=== PATIENT | female | born 1955 | race Caucasian/White ===

== ENCOUNTER → 2016-11-21 | Outpatient (CLI) | payer OTHER ==
[2016-03-13 14:05] VITALS: BP 136/62
[~2016-11-21] MED LIST: ACET325T9 PO; ASPI-482 PO; ATOR10TA60 PO; CLOP75TA57 PO; DIGO125T PO; DILT240C2 PO; DILT30TA26 PO; FLUO20CA16 PO; FURO-69 PO; GLIM1TAB2 PO; GLIP5TAB3 PO; HYDR-971 PO; LOSA25TA4 PO; MAGN400C PO; METF10002 PO; METF500T4 PO; METO200T3 PO; PHEN100T82 PO; PRAV20TA2 PO; RIVA10TA PO; SOTA120T7 PO; SULF1TAB24 PO; WARF-78 PO; WARF1TAB74 PO; WARF2.5T83 PO
[2016-11-21 16:44] LABS: ALBUMIN/GLOBULIN RATIO 0.7 (1.0-1.7); CALCIUM 8.4 mg/dL (8.5-10.1); CREATININE 1.4 mg/dL (0.6-1.0); GFR 38.5; POTASSIUM 4.8 mmol/L (3.5-5.1); TOTAL BILIRUBIN 0.2 mg/dL (0.2-1.0); TOTAL PROTEIN 7.1 g/dL (6.4-8.2)
[2016-11-21 17:04] LABS: BASO % 1 % (0-3); EOS # 0.3 x10^3/uL (0.0-0.7); EOS % 3 % (0-3); HEMATOCRIT 37.4 % (36.0-47.0); HEMOGLOBIN 11.9 g/dL (12.0-15.5); LYMPH % 33 % (24-48); MEAN CORPUSCULAR HEMOGLOBIN 29 pg (25-35); MEAN CORPUSCULAR HGB CONC 32 g/dL (31-37); MEAN CORPUSCULAR VOLUME 90 fL (79-100); MONO % 11 % (0-9); NEUT # 4.6 x10^3uL (1.8-7.7); NEUT % 52 % (31-73); PLATELET COUNT 207 x10^3/uL (140-400); RED BLOOD COUNT 4.17 x10^6/uL (3.50-5.40); RED CELL DISTRIBUTION WIDTH 16.5 % (11.5-14.5); WHITE BLOOD COUNT 8.9 x10^3/uL (4.0-11.0)
== END | disposition home or self-care (01) ==
LOC: LAB 15:46
PROVIDERS: ATTEND Internal Medicine Cardiovascular Disease
DX: I73.9 Peripheral vascular disease, unspecified (principal)
CPT/HCPCS: 36415; 80053; 84550; 85027

== ENCOUNTER → 2016-12-16 | Outpatient (CLI) | payer OTHER ==
[2016-03-13 14:05] VITALS: BP 136/62
[2016-12-16 09:30] LABS: BASO % 1 % (0-3); EOS # 0.3 x10^3/uL (0.0-0.7); EOS % 4 % (0-3); HEMATOCRIT 35.6 % (36.0-47.0); HEMOGLOBIN 11.6 g/dL (12.0-15.5); LYMPH # 3.2 x10^3/uL (1.0-4.8); LYMPH % 40 % (24-48); MEAN CORPUSCULAR HEMOGLOBIN 29 pg (25-35); MEAN CORPUSCULAR HGB CONC 33 g/dL (31-37); MEAN CORPUSCULAR VOLUME 90 fL (79-100); MONO # 0.9 x10^3/uL (0.0-1.1); MONO % 12 % (0-9); NEUT # 3.5 x10^3uL (1.8-7.7); NEUT % 44 % (31-73); PLATELET COUNT 193 x10^3/uL (140-400); RED BLOOD COUNT 3.96 x10^6/uL (3.50-5.40); RED CELL DISTRIBUTION WIDTH 16.3 % (11.5-14.5)
[2016-12-16 09:31] LABS: ALBUMIN 2.8 g/dL (3.4-5.0); CALCIUM 8.5 mg/dL (8.5-10.1); CREATININE 1.4 mg/dL (0.6-1.0); GFR 38.5; MAGNESIUM 1.7 mg/dL (1.8-2.4); PHOSPHORUS 3.4 mg/dL (2.6-4.7); POTASSIUM 4.7 mmol/L (3.5-5.1)
[2016-12-16 18:08] LABS: CALCIUM PTH 8.6 mg/dL (8.7-10.2); CREATININE PTH 1.24 mg/dL (0.57-1.00); PTH INTACT 67 pg/mL (15-65)
== END | disposition home or self-care (01) ==
LOC: LAB 08:03
PROVIDERS: ATTEND Internal Medicine Nephrology
DX: I12.9 Hypertensive chronic kidney disease with stage 1 through stage 4 chronic kidney disease, or unspecified chronic kidney disease (principal); N18.3 Chronic kidney disease, stage 3 (moderate); E11.22 Type 2 diabetes mellitus with diabetic chronic kidney disease; E11.21 Type 2 diabetes mellitus with diabetic nephropathy; N27.0 Small kidney, unilateral; N20.0 Calculus of kidney; Z68.41 Body mass index [BMI] 40.0-44.9, adult
CPT/HCPCS: 36415; 80069; 83735; 83970; 85027

== ENCOUNTER → 2017-01-10 | Outpatient (CLI) | payer OTHER ==
[2016-03-13 14:05] VITALS: BP 136/62
--- NOTE | 2017-01-10 15:46 | RAD ---
Exam performed: Thyroid ultrasound. Indication: Multinodular goiter. Date of Service: 01/10/17. Comparison: 01/07/16. Technique: Real-time grayscale imaging of the thyroid gland is performed and images are obtained. Findings: The thyroid gland is and large and heterogeneous in echotexture. There are multiple bilateral thyroid nodules with very little residual thyroid tissue. The right lobe measures 6.0 x 1.6 x 1.9 cm whereas the left lobe measures 4.9 x 2.8 x 2.6 cm. The thyroid isthmus measures 2.0 mm. Numerous bilateral solid nodules are seen scattered throughout both lobes of the thyroid gland. The largest nodule on the right measures 50.4 x 1.9 x 1.2 cm in the inferior pole and the largest nodule on the left measures 3.2 x 1.9 x 1.3 cm in the superior pole. Impression: 1. Multiple bilateral thyroid nodules appear overall similar.
== END | disposition home or self-care (01) ==
LOC: US 12:22
PROVIDERS: ATTEND Surgery
DX: E04.2 Nontoxic multinodular goiter (principal)
CPT/HCPCS: 76536

== ENCOUNTER → 2017-01-10 | Outpatient (CLI) | payer OTHER ==
[2016-03-13 14:05] VITALS: BP 136/62
[2017-01-10 13:07] LABS: CALCIUM 8.7 mg/dL (8.5-10.1); CREATININE 1.4 mg/dL (0.6-1.0); GFR 38.5; POTASSIUM 4.1 mmol/L (3.5-5.1)
== END | disposition home or self-care (01) ==
LOC: LAB 12:31
PROVIDERS: ATTEND Internal Medicine Nephrology
DX: I13.0 Hypertensive heart and chronic kidney disease with heart failure and stage 1 through stage 4 chronic kidney disease, or unspecified chronic kidney disease (principal); N18.3 Chronic kidney disease, stage 3 (moderate); I50.9 Heart failure, unspecified; E11.21 Type 2 diabetes mellitus with diabetic nephropathy; N20.0 Calculus of kidney; N27.0 Small kidney, unilateral; Z79.4 Long term (current) use of insulin; Z72.0 Tobacco use; Z68.42 Body mass index [BMI] 45.0-49.9, adult
CPT/HCPCS: 36415; 80048

== ENCOUNTER → 2017-03-29 | Outpatient (CLI) | payer OTHER ==
[2016-03-13 14:05] VITALS: BP 136/62
[~2017-03-29] MED LIST changes: -METO200T3 PO; +METO200T5 PO
[2017-03-29 12:07] LABS: HEMATOCRIT 34.6 % (36.0-47.0); HEMOGLOBIN 11.1 g/dL (12.0-15.5)
[2017-03-29 12:14] LABS: ALBUMIN 2.8 g/dL (3.4-5.0); CALCIUM 8.5 mg/dL (8.5-10.1); CREATININE 1.7 mg/dL (0.6-1.0); GFR 30.8; MAGNESIUM 1.7 mg/dL (1.8-2.4); PHOSPHORUS 3.3 mg/dL (2.6-4.7); POTASSIUM 4.6 mmol/L (3.5-5.1)
[2017-03-29 12:24] LABS: BACTERIA,URINE MOD /HPF (0-FEW); BILIRUBIN,URINE NEG (NEG); CLARITY,URINE HAZY; COLOR,URINE YELLOW; GLUCOSE,URINE NEG (NEG); NITRITE,URINE NEG (NEG); RBC,URINE RARE /HPF (0-2); SQUAMOUS EPITHELIAL CELL,UR MOD /LPF; UROBILINOGEN,URINE 0.2 mg/dL (0.2 mg/dL)
[2017-03-30 06:12] LABS: MICRO CREAT RATIO <49.2 mg/g creat (0.0-30.0); MICROALB RD UR <12.0 ug/mL (Not Estab.); UR PROTEIN RD 6.1 mg/dL (Not Estab.)
[2017-03-30 13:09] LABS: CALCIUM PTH 8.5 mg/dL (8.7-10.2); CREATININE PTH 1.44 mg/dL (0.57-1.00); PTH INTACT 124 pg/mL (15-65)
== END | disposition home or self-care (01) ==
LOC: LAB 11:14
PROVIDERS: ATTEND Internal Medicine Nephrology
DX: I13.0 Hypertensive heart and chronic kidney disease with heart failure and stage 1 through stage 4 chronic kidney disease, or unspecified chronic kidney disease (principal); I50.9 Heart failure, unspecified; E11.21 Type 2 diabetes mellitus with diabetic nephropathy; N18.3 Chronic kidney disease, stage 3 (moderate); N27.0 Small kidney, unilateral; N20.0 Calculus of kidney; Z79.4 Long term (current) use of insulin; Z68.42 Body mass index [BMI] 45.0-49.9, adult; Z72.0 Tobacco use
CPT/HCPCS: 36415; 80069; 81001; 82043; 82570; 83735; 83970; 84156; 85014; 85018

== ENCOUNTER → 2017-07-18 | Outpatient (CLI) | payer OTHER ==
[2016-03-13 14:05] VITALS: BP 136/62
[~2017-07-18] MED LIST changes: +METO200T46 PO; -METO200T5 PO
--- NOTE | 2017-07-18 15:01 | CARD ---
MR#: [id number] Date of Study: 07/18/2017 Ordering Physician: PETR CAMPBELL, Referring Physician: PETR CAMPBELL, Tech: VIVIAN Foster APPROVED REPORT EXAM: Two-dimensional and M-mode echocardiogram with Doppler and color Doppler. Other Information Quality : AverageHR: 54bpm INDICATION Peripheral artery disease RISK FACTORS Obesity 2D DIMENSIONS RVDd3.2 (2.9-3.5cm)Left Atrium(2D)4.7 (1.6-4.0cm) IVSd1.5 (0.7-1.1cm)Aortic Root(2D)2.4 (2.0-3.7cm) LVDd4.0 (3.9-5.9cm)LVOT Diameter2.0 (1.8-2.4cm) PWd1.9 (0.7-1.1cm)LVDs2.4 (2.5-4.0cm) FS (%) 41.0 %SV51.3 ml LVEF(%)72.3 (>50%) Aortic Valve AoV Peak Carroll.133.1cm/sAoV VTI41.3cm AO Peak GR.7.1mmHgLVOT Peak Carroll.110.1cm/s LVOT VTI 33.27cmAO Mean GR.4mmHg CECILE (VMAX)2.60wm3QXR (VTI)2.52cm2 Mitral Valve MV E Cetezkvy21.3cm/sMV DECEL [id number] MV A Aelplawv74.6cm/sE/A Ratio0.8 Pulmonary Valve PV Peak Tliofpnr108.9cm/sPV Peak Grad.5mmHg Tricuspid Valve TR P. Jjbzaypd116gn/sTR Peak Gr.19mmHg Pulmonary Vein S1 Bdlxanch75.3cm/sD2 Vpkthrrk27.7cm/s LEFT VENTRICLE The left ventricle is normal size. There is moderate concentric left ventricular hypertrophy. The lef t ventricular systolic function is normal. The ejection fraction is estimated at 65%. There is normal LV segmental wall motion. Transmitral Doppler flow pattern is Grade I-abnormal relaxation pattern. RIGHT VENTRICLE The right ventricle is normal size. The right ventricle is moderately hypertrophied. The right ventri cular systolic function is normal. ATRIA The left atrium is mildly dilated. The right atrium size is normal. The interatrial septum is intact with no evidence for an atrial septal defect or patent foramen ovale as noted on 2-D or Doppler imagi ng. AORTIC VALVE The aortic valve is calcified but opens well. Doppler and Color Flow revealed no significant aortic r egurgitation. There is no significant aortic valvular stenosis. There is no aortic valvular vegetatio n. MITRAL VALVE The mitral valve is thickened but opens well. There is no evidence of mitral valve prolapse. There is no mitral valve stenosis. Doppler and Color Flow revealed no mitral valve regurgitation noted. TRICUSPID VALVE The tricuspid valve is not well visualized. Doppler and Color Flow revealed trace tricuspid regurgita tion. There is no tricuspid valve prolapse or vegetation. There is no tricuspid valve stenosis. PULMONIC VALVE The pulmonic valve is not well visualized. Doppler and Color Flow revealed no pulmonic valvular regur gitation. There is no pulmonic valvular stenosis. GREAT VESSELS The aortic root is normal in size. The IVC is normal in size and collapses >50% with inspiration. PERICARDIAL EFFUSION There is no pleural effusion. There is no evidence of significant pericardial effusion. Critical Notification Critical Value: No <Conclusion> The left ventricular systolic function is normal. The ejection fraction is estimated at 65%. There is normal LV segmental wall motion. Transmitral Doppler flow pattern is Grade I-abnormal relaxation pattern. Trace tricuspid regurgitation. There is no evidence of significant pericardial effusion. Signed by : José Miguel Chanel, Electronically Approved : 07/18/2017 15:01:27
--- NOTE | 2017-07-18 18:44 | RAD ---
MR#: [id number] Date of Study: 07/18/2017 Ordering Physician: PETR CAMPBELL, Referring Physician: PETR CAMPBELL, Tech: Evie Beltrán RDMS, RVT, RTR APPROVED REPORT Patient Location: OUT-PATIENT Indications PAD Grayscale images of the right lower extremity arterial vessels reveal mild diffuse atherosclerotic pl aque and a patent mid SFA stent. The common femoral velocities are 100 cm/s and biphasic in the commo n femoral artery. There are monophasic waveforms in the superficial femoral artery at approximately 1 20 cm/s. Waveforms are biphasic at 90 cm/s in the popliteal segment. Below the knee the waveforms are monophasic at approximately 30, 55 [place] 48 cm/s in the posterior tibial, peroneal and anterior tib ial arteries bilaterally. No focal high-grade stenosis is identified. Similarly on the left side there is mild diffuse atherosclerotic plaque in the lower extremity arteri al vessels. There are biphasic waveforms in the common femoral artery at approximately 144 cm/s. [place] phasic waveforms are noted in the proximal and mid superficial femoral artery with a peak velocity of 173 cm/s. The popliteal artery is patent with monophasic waveforms at approximately 100 cm/s. Below the knee there is 2 vessel runoff in the form of a patent posterior tibial and anterior tibial vessel s with monophasic waveforms and no focal high-grade disease. The peroneal artery was not well visuali zed. This was a technically challenging case due to the patient's body habitus. Critical Notification Critical Value: No <Conclusion> 1. No focal high-grade stenosis in the bilateral lower extremities. 2. Patent stent of the right superficial femoral artery. Signed by : Petr Campbell, Electronically Approved : 07/18/2017 18:43:30
--- NOTE | 2017-07-19 12:24 | RAD ---
MR#: [id number] Date of Study: 07/18/2017 Ordering Physician: PETR CAMPBELL, Referring Physician: PETR CAMPBELL, Tech: Evie Beltrán RDMS, RVT, RTR APPROVED REPORT Patient Location: OUT-PATIENT Laterality:Bilateral Indications CVA/TIA: Grayscale images of the bilateral common carotid, internal carotid vessels do not reveal any focal hi gh-grade stenosis. The left external carotid artery has approximately a 50% luminal narrowing with pl aque. Spectral waveforms and color Doppler on the right common carotid and internal carotid artery do not reveal any significant high-grade stenosis. Peak velocities in the internal carotid artery are a pproximately 114 cm/s. ICA to CCA ratios are grossly unremarkable. Overall 0 to less than 50% stenosi s. On the left there is again no significant velocity elevation in the internal carotid system. The left external carotid artery has elevated velocities at 235 cm/s. ICA to CCA ratios are grossly normal. O verall 0 to less than 50% stenosis. Risk Factors Prior right-sided carotid endarterectomy. Critical Notification Critical Value: No <Conclusion> 1. No significant high-grade internal carotid artery stenosis bilaterally. 2. Antegrade vertebral artery velocities bilaterally. 3. Mildly elevated left external coronary artery velocities. Signed by : Petr Campbell, Electronically Approved : 07/19/2017 12:23:50
== END | disposition home or self-care (01) ==
LOC: US 09:37
PROVIDERS: ATTEND Internal Medicine Cardiovascular Disease
DX: I73.9 Peripheral vascular disease, unspecified (principal); G45.9 Transient cerebral ischemic attack, unspecified; E66.9 Obesity, unspecified; I51.7 Cardiomegaly
CPT/HCPCS: 93306; 93880; 93925

== ENCOUNTER → 2017-08-25 | Outpatient (CLI) | payer OTHER ==
[2016-03-13 14:05] VITALS: BP 136/62
[2017-08-25 13:31] LABS: HEMATOCRIT 38.2 % (36.0-47.0); HEMOGLOBIN 12.2 g/dL (12.0-15.5)
[2017-08-25 13:36] LABS: ALBUMIN 2.9 g/dL (3.4-5.0); CALCIUM 8.5 mg/dL (8.5-10.1); CREATININE 1.8 mg/dL (0.6-1.0); GFR 28.7; MAGNESIUM 1.6 mg/dL (1.8-2.4); PHOSPHORUS 3.6 mg/dL (2.6-4.7); POTASSIUM 4.2 mmol/L (3.5-5.1)
[2017-08-25 15:14] LABS: BACTERIA,URINE 0 /HPF (0-FEW); BILIRUBIN,URINE NEG (NEG); CLARITY,URINE HAZY; COLOR,URINE YELLOW; GLUCOSE,URINE NEG (NEG); NITRITE,URINE NEG (NEG); UROBILINOGEN,URINE 0.2 mg/dL (0.2 mg/dL)
[2017-08-25 15:15] LABS: HYALINE CASTS, URINE MOD /HPF; SQUAMOUS EPITHELIAL CELL,UR MANY /LPF
[2017-08-27 08:35] LABS: CALCIUM PTH 8.5 mg/dL (8.7-10.3); CREATININE PTH 1.54 mg/dL (0.57-1.00); PTH INTACT 106 pg/mL (15-65)
[2017-08-29 11:11] LABS: MICRO CREAT RATIO 12.2 mg/g creat (0.0-30.0); MICROALB RD UR 5.4 ug/mL (Not Estab.)
== END | disposition home or self-care (01) ==
LOC: LAB 11:17
PROVIDERS: ATTEND Internal Medicine Nephrology
DX: I12.9 Hypertensive chronic kidney disease with stage 1 through stage 4 chronic kidney disease, or unspecified chronic kidney disease (principal); E11.21 Type 2 diabetes mellitus with diabetic nephropathy; I50.9 Heart failure, unspecified; N18.3 Chronic kidney disease, stage 3 (moderate); N27.0 Small kidney, unilateral; N20.0 Calculus of kidney; Z79.4 Long term (current) use of insulin; Z72.0 Tobacco use; Z68.42 Body mass index [BMI] 45.0-49.9, adult
CPT/HCPCS: 36415; 80069; 81001; 82043; 82570; 83735; 83970; 85014; 85018

== ENCOUNTER → 2017-09-04 | Outpatient (CLI) | payer OTHER ==
[2016-03-13 14:05] VITALS: BP 136/62
--- NOTE | 2017-09-04 16:12 | RAD ---
Abdominal ultrasound, 09/04/2017: History: Renal calculus The gallbladder is within normal limits in size. It contains multiple foci of increased echogenicity with associated posterior acoustic shadowing. The appearance is that of cholelithiasis. The gallbladder wall is not thickened. The common hepatic duct is of normal caliber. The liver measures 19.3 cm in craniocaudad extent at the level of the right lobe. The visualized portions of the liver show no evidence of a hepatic mass. The incompletely delineated pancreas is unremarkable. Much of the abdominal aorta and inferior vena cava were obscured by overlying bowel. The spleen is of normal size. The left kidney shows no evidence of mass or hydronephrosis. The right kidney was not adequately delineated. A previous CT study showed that the kidney was markedly atrophic and scarred with cortical calcifications, contributing to its lack of clear delineation on today's ultrasound exam. No free fluid is evident in the abdomen. IMPRESSION: 1. Cholelithiasis. 2. Mild hepatomegaly. 3. Atrophic, partially calcified, poorly delineated right kidney.
== END | disposition home or self-care (01) ==
LOC: US 08:05
PROVIDERS: ATTEND Internal Medicine Nephrology
DX: N20.0 Calculus of kidney (principal); K80.20 Calculus of gallbladder without cholecystitis without obstruction; R16.0 Hepatomegaly, not elsewhere classified
CPT/HCPCS: 76700

== ENCOUNTER → 2017-11-09 | Outpatient (CLI) | payer OTHER ==
[2016-03-13 14:05] VITALS: BP 136/62
[~2017-11-09] MED LIST changes: -METF10002 PO; +METF10003 PO; -METF500T4 PO; +METF500T5 PO
[2017-11-09 12:08] LABS: CALCIUM 8.9 mg/dL (8.5-10.1); CREATININE 1.6 mg/dL (0.6-1.0); GFR 32.9; POTASSIUM 3.8 mmol/L (3.5-5.1)
== END | disposition home or self-care (01) ==
LOC: LAB 11:05
PROVIDERS: ATTEND Internal Medicine Cardiovascular Disease
DX: I10 Essential (primary) hypertension (principal); Z79.899 Other long term (current) drug therapy
CPT/HCPCS: 36415; 80048

== ENCOUNTER 2018-04-08 13:19 | Emergency (ER) | payer OTHER ==
[~2018-04-08] VITALS: Ht 180.3 cm; Wt 127.0 kg
[~2018-04-08 13:19] MED LIST changes: +HYDR-3165 PO; -HYDR-971 PO; -LOSA25TA4 PO; +LOSA25TA5 PO; -METF10003 PO; +METF10007 PO; +METF500T16 PO; -METF500T5 PO
[2018-04-08 13:50] VITALS: BP 126/30
[2018-04-08] MEDS ORDERED: HYDROcodone/APAP 5/325MG 1 TAB TABLET PO ONE (14:00)
--- NOTE | 2018-04-08 14:16 | PHYS DOC ---
Past History Past Medical History: A-Fib, Diabetes, Hypertension, Renal Disease Past Surgical History: Tonsillectomy, Other Alcohol Use: Rarely Drug Use: None Adult General Chief Complaint Chief Complaint: WOUND CHECK HPI HPI Patient is a 62 year old female who presents with right lower extremity wound check. Patient reports pain. Patient is out of her pain medicines due to the holiday and not being able to see see her wound management team. Patient denies any increasing redness, no purulent drainage, no fever. The wound has been getting better over time, and pain is improved with the narcotic pain medicine which she is out of.[] Review of Systems Review of Systems Constitutional: Denies fever or chills [] Eyes: Denies change in visual acuity, redness, or eye pain [] HENT: Denies nasal congestion or sore throat [] Respiratory: Denies cough or shortness of breath [] Cardiovascular: No chest pain or palpitations[] GI: Denies abdominal pain, nausea, vomiting, bloody stools or diarrhea [] : Denies dysuria or hematuria [] Musculoskeletal: Denies back pain or joint pain [] Integument: See history of present illness[] Neurologic: Denies headache, focal weakness or sensory changes [] Endocrine: Denies polyuria or polydipsia [] All other systems were reviewed and found to be within normal limits, except as documented in this note. Current Medications Current Medications Current Medications Medications (Trade) Dose Ordered Sig/Cande Start Time Stop Time Status Last Admin Dose Admin Acetaminophen/ Hydrocodone Bitart (Lortab 5/325) 1 tab 1X ONCE 04/08/18 14:00 04/08/18 14:01 DC Allergies Allergies Allergies Coded Allergies Type Severity Reaction Last Updated Verified No Known Drug Allergies 03/13/16 No Physical Exam Physical Exam Constitutional: Well developed, well nourished, no acute distress, non-toxic appearance. [] HENT: Normocephalic, atraumatic, bilateral external ears normal, oropharynx moist, no oral exudates, nose normal. [] Eyes: PERRLA, EOMI, conjunctiva normal, no discharge. [] Neck: Normal range of motion, no tenderness, supple, no stridor. [] Cardiovascular:Heart rate regular rhythm, no murmur [] Lungs & Thorax: Bilateral breath sounds clear to auscultation [] Abdomen: Bowel sounds normal, soft, no tenderness, no masses, no pulsatile masses. [] Skin: Warm, healing lesions on the anterior and posterior surface of her distal leg. No purulent drainage. Local erythema is present. [] Back: No tenderness, no CVA tenderness. [] Extremities: Tenderness at healing skin lesions, no cyanosis, no clubbing, ROM intact, bilateral lower extremity edema which is symmetric. [] Neurologic: Alert and oriented X 3, normal motor function, normal sensory function, no focal deficits noted. [] Psychologic: Affect normal, judgement normal, mood normal. [] EKG EKG [] Radiology/Procedures Radiology/Procedures [] Course & Med Decision Making Course & Med Decision Making Pertinent Labs and Imaging studies reviewed. (See chart for details) This appears to be a case of needing medication for pain management. No evidence of worsening infection. We'll provide 48 hours of pain medicine given recent weekend along with the current weather conditions to any palpation to get in with her wound care team for long-term pain management.[] Dragon Disclaimer Dragon Disclaimer This electronic medical record was generated, in whole or in part, using a voice recognition dictation system. Departure Departure: Impression: Primary Impression: Visit for wound check Disposition: HOME, SELF-CARE Condition: GOOD Referrals: MIKAYLA CARRERO MD (PCP) Follow-up in 2 days Patient Instructions: Chronic Pain, Wound Check Additional Instructions: Follow-up with your primary care physician and wound care team within 2 days. Take your medication as prescribed. Return to the emergency department if worsening pain, fever, or any other concerns. Scripts Hydrocodone Bit/Acetaminophen (NORCO 5-325 TABLET) 1 Each Tablet 1 TAB PO PRN Q6HRS PRN for PAIN, #20 TAB 0 Refills Prov: DOUGLAS QUINTEROS DO 04/08/18 DOUGLAS QUINTEROS DO Apr 08, 2018 14:16
[2018-04-08] MEDS ORDERED: HYDR-3165 PO (14:24)
== END 2018-04-08 14:30 | disposition home or self-care (01) ==
LOC: ER 13:19
DX: Z48.00 Encounter for change or removal of nonsurgical wound dressing (principal); R60.0 Localized edema; I48.91 Unspecified atrial fibrillation; E11.9 Type 2 diabetes mellitus without complications; I10 Essential (primary) hypertension
CPT/HCPCS: 99283

== ENCOUNTER → 2018-04-11 | Outpatient (CLI) | payer OTHER ==
[2018-04-08 13:50] VITALS: BP 126/30
[2018-04-11 09:54] LABS: ALBUMIN 2.5 g/dL (3.4-5.0); CALCIUM 8.3 mg/dL (8.5-10.1); CREATININE 2.3 mg/dL (0.6-1.0); GFR 21.6; PHOSPHORUS 3.5 mg/dL (2.6-4.7); POTASSIUM 3.2 mmol/L (3.5-5.1)
== END | disposition home or self-care (01) ==
LOC: LAB 08:40
PROVIDERS: ATTEND Internal Medicine Nephrology
DX: I12.9 Hypertensive chronic kidney disease with stage 1 through stage 4 chronic kidney disease, or unspecified chronic kidney disease (principal); E11.21 Type 2 diabetes mellitus with diabetic nephropathy; N18.3 Chronic kidney disease, stage 3 (moderate); N27.0 Small kidney, unilateral; N17.9 Acute kidney failure, unspecified; Z72.0 Tobacco use; Z68.42 Body mass index [BMI] 45.0-49.9, adult
CPT/HCPCS: 36415; 80069

== ENCOUNTER 2018-05-15 11:00 | Emergency (ER) | payer OTHER ==
[~2018-05-15 11:00] MED LIST changes: -DIGO125T PO; +DIGO125T17 PO; +LOSA25TA11 PO; -LOSA25TA5 PO
--- NOTE | 2018-05-15 12:11 | PHYS DOC ---
Past History Past Medical History: A-Fib, Diabetes, Hypertension, Renal Disease Past Surgical History: Tonsillectomy, Other Alcohol Use: Rarely Drug Use: None Adult General Chief Complaint Chief Complaint: MECHANICAL FALL HPI HPI Patient is a 62 year old female with history of atrial flutter patient on Xarelto and wheelchair-bound who presents with complaining of a fall from her wheelchair inside of her home on carpeted area because of because of not paying attention while riding her wheelchair . Patient states she landed on her face and denies loss of consciousness. Patient complaining of pain in her face and left leg and rated her pain 8/10. Patient states her last tetanus immunization was 4 years ago. Review of Systems Review of Systems Constitutional: Denies fever or chills [] Eyes: Denies change in visual acuity, redness, or eye pain [] HENT: Denies nasal congestion or sore throat [] Respiratory: Denies cough or shortness of breath [] Cardiovascular: No additional information not addressed in HPI [] GI: Denies abdominal pain, nausea, vomiting, bloody stools or diarrhea [] : Denies dysuria or hematuria [] Musculoskeletal: Denies back pain or joint pain [] Integument: Reports contusion and abrasion Neurologic: Denies headache, focal weakness or sensory changes [] Endocrine: Denies polyuria or polydipsia [] All other systems were reviewed and found to be within normal limits, except as documented in this note. Allergies Allergies Allergies Coded Allergies Type Severity Reaction Last Updated Verified No Known Drug Allergies 03/13/16 No Physical Exam Physical Exam Constitutional: Well nourished, mild distress, non-toxic appearance. [] HENT: Normocephalic, left forehead contusion and edema, bilateral external ears normal, oropharynx moist, no oral exudates, nose normal. [] Eyes: PERRLA, EOMI, conjunctiva normal, no discharge. [] Neck: Normal range of motion, no tenderness, supple, no stridor. [] Cardiovascular:Heart rate regular rhythm, no murmur [] Lungs & Thorax: Bilateral breath sounds clear to auscultation [] Abdomen: Bowel sounds normal, soft, no tenderness, no masses, no pulsatile masses. [] Skin: Right lower extremity with chronic wound covered with dressing, 1 cm abrasion in posterior of left lower leg Back: No tenderness, no CVA tenderness. [] Extremities: No deformity, chronic bilateral lower extremity edema, Neurologic: Alert and oriented X 3, normal motor function, normal sensory function, no focal deficits noted. [] Psychologic: Affect normal, judgement normal, mood normal. [] EKG EKG [] Radiology/Procedures Radiology/Procedures [] Course & Med Decision Making Course & Med Decision Making Pertinent Labs and Imaging studies reviewed. (See chart for details) [] Dragon Disclaimer Dragon Disclaimer This electronic medical record was generated, in whole or in part, using a voice recognition dictation system. Departure Departure: Impression: Primary Impression: Facial contusion Additional Impressions: Fall at home Leg injury Chronic wound of extremity Disposition: HOME, SELF-CARE (at 1256) Condition: IMPROVED Referrals: MIKAYLA CARRERO MD (PCP) Patient Instructions: Contusion, Fall Prevention and Home Safety Additional Instructions: Apply ice on the affected area Follow-up with your primary care physician in 3-5 days Return to ER if not getting better Continue home medication Problem Qualifiers BREEZY ARNETT MD May 15, 2018 12:11
--- NOTE | 2018-05-15 12:22 | RAD ---
CT of the head without contrast, 05/15/2018: HISTORY: Fall, facial pain There is moderate cerebral atrophy. There is a small lucency in the right basal ganglia compatible with an old lacunar infarct. The ventricles are within normal limits in size. There is no shift of the midline structures. There is no evidence of acute intracranial hemorrhage or mass effect. IMPRESSION: 1. Chronic findings as instructed above. 2. No acute intracranial abnormality is detected. CT of the facial bones without contrast, 05/15/2018: Noncontrast scans were obtained with multiplanar reconstructions produced. No facial bone fracture is identified. There is moderate mucosal thickening in both maxillary sinuses with a probable retention cyst along the floor of the left maxillary sinus. No free fluid is evident in the sinuses. There is extensive dental disease with multiple absent tooth and caries in the remaining teeth. IMPRESSION: 1. No facial bone fracture is identified. 2. Chronic paranasal sinusitis. CT of the cervical spine without contrast, 05/15/2018: There is moderate spurring at the C5-6 and C6-7 disc levels. There are moderate degenerative changes involving scattered facet joints bilaterally. The combination of findings is causing borderline narrowing of the central spinal canal at several levels as well as moderate foraminal encroachment bilaterally at C6-7. No acute fracture or dislocation is identified. There are surgical clips in the neck on the right. IMPRESSION: 1. Moderate multilevel degenerative change. 2. No acute bony abnormality is detected. Electronically signed by: Sridhar Hoskins MD (05/15/2018 12:18 PM) [facility]
--- NOTE | 2018-05-15 12:34 | RAD ---
Left tibia fibula AP lateral x-rays HISTORY: Fall, left tibia fibula pain. FINDINGS: There is diffuse calf soft tissue swelling and edema. No fracture or dislocation, periosteal reaction, or lytic or sclerotic bone lesion of the tibia and fibula. Osteoarthritic change of the knee noted. IMPRESSION: No acute osseous injury. Diffuse calf soft tissue edema and swelling. Electronically signed by: Ganesh Thomson MD (05/15/2018 12:30 PM) [id number]
[2018-05-15 13:20] VITALS: BP 110/58
== END 2018-05-15 13:15 | disposition home or self-care (01) ==
LOC: ER 11:00
DX: S00.83XA Contusion of other part of head, initial encounter (principal); S80.812A Abrasion, left lower leg, initial encounter; I48.91 Unspecified atrial fibrillation; E11.9 Type 2 diabetes mellitus without complications; I10 Essential (primary) hypertension; W05.0XXA Fall from non-moving wheelchair, initial encounter; Y93.89 Activity, other specified; Y92.098 Other place in other non-institutional residence as the place of occurrence of the external cause; Y99.8 Other external cause status
CPT/HCPCS: 70450; 70486; 72125; 73590; 99284-25

== ENCOUNTER 2020-07-04 18:39 | Emergency (ER) | payer OTHER ==
[~2020-07-04] VITALS: Ht 167.6 cm; Wt 165.0 kg
[~2020-07-04 18:39] MED LIST changes: -GLIM1TAB2 PO; +GLIM1TAB7 PO; -WARF-78 PO; +WARF1TAB2 PO; -WARF1TAB74 PO; +WARF2.5T2 PO; -WARF2.5T83 PO; +WARF5TAB2 PO
[2020-07-04] MEDS ORDERED: NORMAL SALINE IV ONE (19:15)
[2020-07-04] MEDS ORDERED: VANCOMYCIN IV ONE (19:15)
[2020-07-04] MEDS ORDERED: PIPERACILLIN/TAZOBACTAM 4.5 GM in IV NORMAL SALINE 50ML 50 ML IV ONE (19:15)
[2020-07-04] MEDS ORDERED: IV RINGERS SOLUTION,LACTATED 1,000 ML IV ONE (19:15)
[2020-07-04] MEDS ORDERED: CONTRAST GIVEN. MC PRN (19:30)
[2020-07-04] MEDS ORDERED: IOHEXOL 300 MG/ML 75 ML VIAL. IV ONE (19:30)
--- NOTE | 2020-07-04 19:32 | EKG ---
[facility] ED [facility] [address] [place] [id number] Test Date: 2020-07-04 Test Time: 19:18:50 Pat Name: CHARISSA RUIZ Department: Room: Gender: F [employer] Agent: : [id number] Requested By: STERLING COLEMAN Order Number: [id number] Reading MD: Measurements Intervals [place] Rate: 88 P: HI: QRS: 48 QRSD: 52 T: -1 QT: 428 QTc: 522 Interpretive Statements IRREGULAR RHYTHM, NO P-WAVE FOUND LOW VOLTAGE ST & T ABNORMALITY, CONSIDER ANTERIOR ISCHEMIA OR LEFT VENTRICULAR STRAIN ABNORMAL ECG RI6.02 No previous ECG available for comparison
[2020-07-04] MEDS ORDERED: PIPERACILLIN/TAZOBACTAM 4.5 GM VIAL IV ONE (19:41)
[2020-07-04] MEDS ORDERED: IV NORMAL SALINE 50ML 50 ML ONE (19:41)
[2020-07-04 19:52] LABS: CALCIUM 6.9 mg/dL (8.5-10.1); CREATININE 5.1 mg/dL (0.6-1.0); GFR 8.5; POTASSIUM 5.5 mmol/L (3.5-5.1)
[2020-07-04 19:57] LABS: BASO % 0 % (0-3); EOS % 0 % (0-3); HEMOGLOBIN 8.7 g/dL (12.0-15.5); LYMPH # 2.6 x10^3/uL (1.0-4.8); LYMPH % 12 % (24-48); MEAN CORPUSCULAR HEMOGLOBIN 28 pg (25-35); MEAN CORPUSCULAR HGB CONC 28 g/dL (31-37); MEAN CORPUSCULAR VOLUME 99 fL (79-100); MONO # 0.7 x10^3/uL (0.0-1.1); MONO % 3 % (0-9); NEUT # 18.8 x10^3uL (1.8-7.7); NEUT % 85 % (31-73); PLATELET COUNT 214 x10^3/uL (140-400); RED BLOOD COUNT 3.14 x10^6/uL (3.50-5.40); RED CELL DISTRIBUTION WIDTH 21.8 % (11.5-14.5); WHITE BLOOD COUNT 22.2 x10^3/uL (4.0-11.0)
[2020-07-04] MEDS ORDERED: HYDROCORTISONE SOD SUCC/PF 100 MG/2 ML VIAL. IVP ONE (20:00)
[2020-07-04] MEDS ORDERED: LEVOTHYROXINE SODIUM 100 MCG VIAL. IVP ONE (20:00)
[2020-07-04 20:02] LABS: BACTERIA,URINE 0 /HPF (0-FEW); CLARITY,URINE HAZY; COLOR,URINE AMBER; GLUCOSE,URINE NEG (NEG); NITRITE,URINE NEG (NEG); SQUAMOUS EPITHELIAL CELL,UR MOD /LPF; UROBILINOGEN,URINE 0.2 mg/dL (0.2 mg/dL)
[2020-07-04] MEDS ORDERED: IV NORMAL SALINE 500ML 500 ML ONE (20:04)
[2020-07-04] MEDS ORDERED: VANCOMYCIN 1 GM VIAL. ONE (20:05)
[2020-07-04 20:07] LABS: ALBUMIN 2.3 g/dL (3.4-5.0); ALBUMIN/GLOBULIN RATIO 0.6 (1.0-1.7); MAGNESIUM 1.7 mg/dL (1.8-2.4); TOTAL BILIRUBIN 0.6 mg/dL (0.2-1.0); TOTAL PROTEIN 5.9 g/dL (6.4-8.2)
[2020-07-04 20:15] LABS: BILIRUBIN,URINE SMALL (NEG)
--- NOTE | 2020-07-04 20:48 | RAD ---
Single view chest dated 07/04/2020. Comparison made to 05/25/2016. FINDINGS: 2 supine portable images submitted. Study is limited due to supine technique and rotation. Heart size is mildly enlarged. There is some fullness of the bilateral hilum, increased. Mild hazy increased de nsity throughout both lungs with elevation of left hemidiaphragm. No pneumothorax. IMPRESSION: Limited exam. Mild perihilar opacities could be related atelectasis or early pneumonia. There is also fullness of the bilateral hilum which could be artifactual. Recommend follow-up PA and lateral exam when patient is able. Electronically signed by: Prasad Santizo MD (07/04/2020 8:46 PM) [facility]
--- NOTE | 2020-07-04 21:22 | PHYS DOC ---
Past History Past Medical History: No Pertinent History Past Surgical History: No Surgical History Alcohol Use: Occasionally Drug Use: None Adult General Chief Complaint Chief Complaint: LOSS OF CONSCIOUSNESS HPI HPI Patient is a 65-year-old female with a past medical history significant for CAD, on Xarelto and clopidogrel with a right-sided carotid stent, CAD, CKD, insulin- dependent diabetes, hypertension and hyperlipidemia who presents from home via EMS with a chief complaint of lethargy. states over the last couple of days she has been really tired, and sleeping all the time. States that today he got worried because it was hard to wake her up so he called EMS. EMS stated initially had a GCS of 9, with a pressure of 70/30 and a blood sugar of 120. Had a tachycardia with irregular rhythm. Gave her a liter of fluid in route and placed a peripheral IV. Review of Systems Review of Systems Review of systems unable to be obtained due to patient's critical status. Current Medications Current Medications Current Medications Medications (Trade) Dose Ordered Sig/Cande Start Time Stop Time Status Last Admin Dose Admin Hydrocortisone Sodium Succinate (Solu-CORTEF) 100 mg 1X ONCE 07/04/20 20:00 07/04/20 20:01 DC 07/04/20 19:56 100 MG Info (Do NOT chart on this entry -- for MONITORING) 1 each PRN DAILY PRN 07/04/20 19:30 07/06/20 19:29 Iohexol (Omnipaque 300 Mg/ml) 75 ml 1X ONCE 07/04/20 19:30 07/04/20 19:31 DC Lactated Ringer's 1,000 ml @ 1,000 mls/hr 1X ONCE 07/04/20 19:15 07/04/20 20:14 DC 07/04/20 19:38 1,000 MLS/HR Levothyroxine Sodium (Synthroid Inj) 150 mcg 1X ONCE 07/04/20 20:00 07/04/20 20:01 DC Piperacillin Sod/ Tazobactam Sod (Zosyn) 4.5 gm STK-MED ONCE 07/04/20 19:41 07/04/20 19:42 DC Piperacillin Sod/ Tazobactam Sod 4.5 gm/Sodium Chloride 50 ml @ 100 mls/hr 1X ONCE 07/04/20 19:15 07/04/20 19:44 DC 07/04/20 19:44 100 MLS/HR Sodium Chloride 500 ml @ As Directed STK-MED ONCE 07/04/20 20:04 07/04/20 20:05 DC Vancomycin HCl (Vancomycin) 1 gm STK-MED ONCE 07/04/20 20:05 07/04/20 20:05 DC Vancomycin HCl 2000 gm/Sodium Chloride 500 ml @ 250 mls/hr 1X ONCE 07/04/20 19:15 07/04/20 21:14 DC 07/04/20 20:06 250 MLS/HR Allergies Allergies Allergies Coded Allergies Type Severity Reaction Last Updated Verified No Known Drug Allergies 03/13/16 No Physical Exam Physical Exam Constitutional: Obese, in acute respiratory and cardiovascular distress HENT: Normocephalic, atraumatic, Eyes: PERRLA, conjunctiva normal, no discharge. [] Neck: Normal range of motion, no stridor. [] Cardiovascular: Tachycardia, irregular rhythm, no murmur appreciated, hypotensive Lungs & Thorax: Tachypnea, hypoxia on room air, bilateral global rhonchi, on 10 L facemask satting 97% Abdomen: Bowel sounds normal, soft, no masses, no pulsatile masses. [] Skin: Patient with erythema/rash underneath abdominal pannus Back: No deformities, wound or bruising noted Extremities: no cyanosis, no clubbing, ROM intact, no edema. [] Neurologic: GCS of 10 (E3, V3, M4), moving all extremities, no obvious facial droop Current Patient Data Lab Results Laboratory Tests Test 07/04/20 19:08 07/04/20 19:10 07/04/20 20:07 07/04/20 20:17 White Blood Count 22.2 x10^3/uL (4.0-11.0) H Red Blood Count 3.14 x10^6/uL (3.50-5.40) L Hemoglobin 8.7 g/dL (12.0-15.5) L Hematocrit 31.0 % (36.0-47.0) L Mean Corpuscular Volume 99 fL (79-100) Mean Corpuscular Hemoglobin 28 pg (25-35) Mean Corpuscular Hemoglobin Concent 28 g/dL (31-37) L Red Cell Distribution Width 21.8 % (11.5-14.5) H Platelet Count 214 x10^3/uL (140-400) Neutrophils (%) (Auto) 85 % (31-73) H Lymphocytes (%) (Auto) 12 % (24-48) L Monocytes (%) (Auto) 3 % (0-9) Eosinophils (%) (Auto) 0 % (0-3) Basophils (%) (Auto) 0 % (0-3) Neutrophils # (Auto) 18.8 x10^3uL (1.8-7.7) H Lymphocytes # (Auto) 2.6 x10^3/uL (1.0-4.8) Monocytes # (Auto) 0.7 x10^3/uL (0.0-1.1) Eosinophils # (Auto) 0.0 x10^3/uL (0.0-0.7) Basophils # (Auto) 0.0 x10^3/uL (0.0-0.2) Platelet Estimate Pending Urine Collection Type Unknown Urine Color Awilda Urine Clarity Hazy Urine pH 5.0 Urine Specific [place] 1.025 Urine Protein 30 mg/dl (NEG-TRACE) Urine Glucose (UA) Neg mg/dL (NEG) Urine Ketones (Stick) Trace mg/dL (NEG) Urine Blood Neg (NEG) Urine Nitrite Neg (NEG) Urine Bilirubin Small (NEG) Urine Urobilinogen Dipstick 0.2 mg/dL (0.2 mg/dL) Urine Leukocyte Esterase Neg (NEG) Urine RBC 1-2 /HPF (0-2) Urine WBC 1-4 /HPF (0-4) Urine Squamous Epithelial Cells Mod /LPF Urine Bacteria 0 /HPF (0-FEW) Sodium Level 145 mmol/L (136-145) Potassium Level 5.5 mmol/L (3.5-5.1) H Chloride Level 109 mmol/L (98-107) H Carbon Dioxide Level 20 mmol/L (21-32) L Anion Gap 16 (6-14) H Blood Urea Nitrogen 61 mg/dL (7-20) H Creatinine 5.1 mg/dL (0.6-1.0) H Estimated GFR (Cockcroft-Gault) 8.5 BUN/Creatinine Ratio 12 (6-20) Glucose Level 105 mg/dL (70-99) H Lactic Acid Level 6.6 mmol/L (0.4-2.0) *H Calcium Level 6.9 mg/dL (8.5-10.1) L Magnesium Level 1.7 mg/dL (1.8-2.4) L Total Bilirubin 0.6 mg/dL (0.2-1.0) Aspartate Amino Transferase (AST) 96 U/L (15-37) H Alanine Aminotransferase (ALT) 2271 U/L (14-59) H Alkaline Phosphatase 180 U/L (46-116) H Troponin I Quantitative 4.354 ng/mL (0-0.055) H Total Protein 5.9 g/dL (6.4-8.2) L Albumin 2.3 g/dL (3.4-5.0) L Albumin/Globulin Ratio 0.6 (1.0-1.7) L POC Venous pH 7.19 (7.32-7.42) L POC Venous pCO2 47 mmHg (41-51) POC Venous pO2 40 mmHg (20-40) Venous Blood HCO3 18 mmol/L (24-28) L POC Venous O2 Saturation (Candace) -11 % POC FiO2 40 Prothrombin Time 34.7 SEC (9.4-11.4) H Prothrombin Time INR 3.5 (0.9-1.1) H Activated Partial Thromboplast Time 39 SEC (23-33) H Creatine Kinase 1575 U/L (26-192) H EKG EKG Rate of 88, irregular rhythm, normal QRS, normal QTC, no STEMI [] Radiology/Procedures Radiology/Procedures Perihilar opacities, atelectasis versus pneumonia [] Heart Score Risk Factors: Risk Factors: DM, Current or recent (<one month) smoker, HTN, HLP, family history of CAD, obesity. Risk Scores: Risk Factors: DM, Current or recent (<one month) smoker, HTN, HLP, family history of CAD, obesity. Course & Med Decision Making Course & Med Decision Making Patient is a 65-year-old female with multiple medical problems who presents via EMS at the request of her for lethargy In route, EMS got a pressure of 70/30, blood sugar 120 and a GCS of 9 and gave 1 L of normal saline in route. Initial EKG shown above with no STEMI but irregular and low voltage. Upon arrival to the emergency department patient placed in trauma bay and cut off patient's clothing. was immediately placed on the monitor with cardiac pads in place. 1 left-sided peripheral IV placed. 1 right-sided 18-gauge EZ IJ placed for central access. Gave a second liter of LR. GCS of 10. Initial vital signs, tachycardia with irregular rhythm, hypotensive, tachypnea, hypoxia on room air and placed on 10 L facemask to get oxygen saturation to 97%. Started on Levophed at 0.05 and titrated up to 0.1 to get a blood pressure of approximately 114/84. Blood cultures obtained. Started on broad-spectrum antibiotics, Zosyn and vancomycin. Given dose of hydrocortisone and was given to give a dose of Synthroid as patient had a scar in her neck and reported possible hypothyroidism. But after further evaluation/investigation patient scar was from a right-sided carotid stent placed. Chest x-ray noted above with probable edema/pneumonia. Laboratory analysis notable for metabolic/lactic acidemia, leukocytosis, anemia, significantly elevated creatinine/RAFAEL, mild hyperkalemia at 5.5, a lactic acid greater than 6, and elevated troponin, mild hypomagnesemia, mildly elevated CK at 1500. After resuscitation patient's vital signs improved and patient appeared more comfortable. Discussed findings with and informed that patient was critically ill with septic shock, cardiac damage, renal damage, respiratory distress, suggesting multiorgan system dysfunction and needed to be transferred/admitted to the [facility] ICU for continued evaluation and treatment. grateful, verbalized understanding and agreed with plan of transfer. [] Dragon Disclaimer Dragon Disclaimer This electronic medical record was generated, in whole or in part, using a voice recognition dictation system. Departure Departure: Impression: Primary Impression: Elevated troponin Additional Impressions: Lactic acid acidosis Septic shock Hypoxia RAFAEL (acute kidney injury) Disposition: 02 DC/TRF OTHER SHORT TERM HOS Condition: STABLE Problem Qualifiers STERLING COLEMAN MD Jul 04, 2020 21:22
[2020-07-04 21:35] VITALS: BP 113/75
[2020-07-04 21:37] LABS: % LYMPHS 8 % (24-48); % MONOS 2 % (0-10); % SEGS 90 % (35-66); ANISOCYTOSIS MOD; PLT ESTIMATE ADEQUATE (ADEQUATE)
== END 2020-07-04 21:36 | disposition short-term general hospital (02) ==
LOC: ER 18:39
DX: R77.8 Other specified abnormalities of plasma proteins (principal); N17.9 Acute kidney failure, unspecified; A41.89 Other specified sepsis; R65.21 Severe sepsis with septic shock; R09.02 Hypoxemia
CPT/HCPCS: 36415; 51702; 71045; 80053; 81001; 82550; 82803; 83605; 83735; 84443; 84484; 85007; 85025; 85610; 85730; 87040; 87077; 87205; 93005; 96365; 96367; 96375; 99285; J2543; J3370; J7040; J7120